=== PATIENT | male | born 1990 | race African-American/Black ===

== ENCOUNTER 2017-09-14 20:33 | Emergency (ER) | payer OTHER | END 2017-09-14 23:10 | disposition home or self-care (01) | LOC: FTE 20:33 | DX: S01.81XA Laceration without foreign body of other part of head, initial encounter (principal); S01.01XA Laceration without foreign body of scalp, initial encounter; W17.89XA Other fall from one level to another, initial encounter; Y92.9 Unspecified place or not applicable | CPT/HCPCS: 12001; 70250; 99283-25 ==

== ENCOUNTER 2017-10-01 18:29 | Emergency (ER) | payer OTHER | END 2017-10-01 19:05 | disposition home or self-care (01) | LOC: E/R 19:05 | DX: Z48.02 Encounter for removal of sutures (principal); Z48.01 Encounter for change or removal of surgical wound dressing | CPT/HCPCS: 99281; Z7502 ==

== ENCOUNTER 2017-10-18 10:29 | Emergency (ER) | payer SELFPAY, OTHER | END 2017-10-18 10:50 | disposition left against medical advice (07) | LOC: E/R 10:29 | DX: Z53.21 Procedure and treatment not carried out due to patient leaving prior to being seen by health care provider (principal) ==